=== PATIENT | female | born 1965 | race Two or more races ===

== ENCOUNTER 2024-08-27 10:21 | Emergency (ER) | payer OTHER, SELFPAY ==
[2024-08-27 10:22] VITALS: BMI 24.9
[2024-08-27 10:28] VITALS: BP 147/86; PULSE 84; RESP 19; TEMP 36.8; O2SAT 99
--- NOTE | 2024-08-27 10:31 | XR_ITS ---
Examination: Ribs, left, with PA chest, 3 views Technique: Chest PA, RIBS AP, RPO, LPO, AP coned lower ribs 5 views Exam date and time: August 27, 2024 1057 hrs. Indications: Posterior left rib pain noticed beginning 4 days ago Findings: Normal heart size No pneumothorax or pulmonary contusion No acute left rib fractures on this limited rib series Impression: No pneumothorax, pulmonary contusion or hemothorax Limited left rib series, no left rib fractures noted
--- NOTE | 2024-08-27 10:32 | EKG_ITS ---
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
--- NOTE | 2024-08-27 11:30 | PD.EDBACK ---
ED Back Injury Pain RME/HPI General Chief Complaint: Urogenital-Female Stated Complaint: I THINK I HAVE A KIDNEY STONE Time Seen by Provider: 08/27/24 10:24 Arrival date/time: 08/27/24 10:21 RME / HPI RME / HPI Narrative: This section includes all my notes and documentations, including HPI, PE, and ED course.? Mahendra Helm MD HPI: 59 year old female here with left sided pain in the middle of the back area for a couple of days. No known injury but work is very physical. Worse with certain movements and positions. Also reports urinary urgency for several days. No other complaints.. ROS: All negative except as documented in HPI. Physical Exam: General:? Alert and oriented.? No acute distress when remaining still.?? Eyes:? Conjunctivae and lids clear.? ENT:? No nasal congestion.? Neck:? Supple.? Heart:? RRR.? Lungs:? No respiratory distress.? Good air movement.? No rhonchi, wheezing, rales.?? Back: Palpation of the left sided intercostal spaces reproduces her pain in mid-thoracic area. Abdomen:? Soft and nontender.?? Legs:? No clubbing, cyanosis, edema.? Skin:? Warm and dry.?? Neuro:? Alert and oriented X 3.?? I reviewed all diagnostic test results. My interpretation of the EKG is?sinus rhythm no ST-T changes. My interpretation of the chest x-ray and left rib x-rays is no acute findings. UA unremarkable. At this point, diagnoses include?Intercostal Muscle Sprain. Treatment here included?Ibuprofen and Tylenol #3. Significant improvement noted. Recommended supportive care. Based on my best medical judgment, made decision no further evaluation or treatment indicated at this time.? Patient understands and agrees to the discharge instructions customized and printed, see below. Discharge Instructions from Dr. Helm printed for you: 1. After evaluation, there is no serious condition. Such as heart attack or kidney stone. 2. Your pain is from small muscle tears between the ribs. Will heal in a couple of weeks. 3. Apply ice or heat if helpful. Ibuprofen as needed. Lidocaine patches and Tylenol with Codeine as needed. 4. See a private doctor in 2 weeks if not completely better. 5. Seek immediate medical care with worsening or with any concerns. Mahendra Helm MD Related Data Home Medications ?Medication ?Instructions ?Recorded ?Confirmed famotidine 40 mg tablet 40 mg PO QDAY 02/17/19 03/10/19 lisinopril 5 mg tablet 5 mg PO QDAY 02/17/19 03/10/19 lovastatin 20 mg tablet 20 mg PO QDAY 02/17/19 03/10/19 Previous Rx's ?Medication ?Instructions ?Recorded ciprofloxacin HCl 500 mg tablet 500 mg PO BID #20 tabs 03/10/19 (Cipro) acetaminophen 300 mg-codeine 30 mg 2 tab PO TID PRN pain #20 tabs 08/27/24 tablet lidocaine 5 % topical patch 1 patch topical QDAY PRN pain #30 08/27/24 (Lidoderm) ea Allergies Allergy/AdvReac Type Severity Reaction Status Date / Time No Known Allergies Allergy Verified 08/27/24 10:26 Course Quality Measures none Orders Category Date Time Status EKG (ED ONLY) *Do not use* NOW Care 08/27/24 10:32 Completed EKG (ED Only) Stat Exams 08/27/24 10:32 Draft XR ribs LT min 3V w CXR1V Stat Exams 08/27/24 10:31 Completed UA, C/S IF [Urinalysis, C/S if Indicated] Stat Lab 08/27/24 11:50 Completed ACETAMINOPHEN w/COD 300-30 [Tylenol w/Cod #3] Med 08/27/24 10:32 Discontinued 2 tab PO X1 ONE Ibuprofen Tab [Motrin Tab] Med 08/27/24 10:33 Discontinued 600 mg PO X1 ONE Vital Signs Vital signs: Vital Signs Temperature 98.3 F 08/27/24 10:28 Pulse Rate 84 08/27/24 10:28 Respiratory Rate 19 08/27/24 10:28 Blood Pressure 147/86 H 08/27/24 10:28 Pulse Oximetry (%) 99 08/27/24 10:28 Oxygen Delivery Method Room Air 08/27/24 10:28 Back Pain / Injury Patient data External records reviewed:: [facility] previous records Clinical information provided by:: patient Social determinants that could affect healthcare access:: none Patient has the following chronic illnesses:: HTN and Hyperlipidemia How is presenting disease/condition affected by chronic disease/condition?: uneffected by Evaluation data The following diagnostics were reviewed and interpreted by me:: lab results, radiology exam(s) and EKG tracing(s) (My interpretation of the EKG: NSR (80 bpm) with no ST-T changes. Mahendra Helm MD) Lab and/or radiology exams considered but not ordered:: none Interpretation Summary: Intercostal Muscle Strain Medications / Prescriptions Medications or Prescriptions considered but not ordered:: none Medication administrations:: Medication Administration History Discontinued Medications Acetaminophen/Codeine Phosphate (Acetaminophen W/Cod 300-30 Tablet) 2 tab PO X1 ONE Stop: 08/27/24 10:33 Last Admin: 08/27/24 11:41 Dose: 2 tab Documented By: TC Ibuprofen (Ibuprofen Tab 600 Mg Tablet) 600 mg PO X1 ONE Stop: 08/27/24 10:34 Last Admin: 08/27/24 11:42 Dose: 600 mg Documented By: TC Ibuprofen and Tylenol #3 Consultations Consultation(s) initiated? (list below): No Diagnosis Differential diagnosis back pain/injury: pyelonephritis, thoracic back pain and other (Pneumonia, Intercostal Muscle Strain) Most likely diagnosis given after review of the tests above:: Instercostal Muscle Strain Admission Indicated Admission indicated?: not indicated Admission Request Was there a request for admission?: No Disposition Plan Disposition Plan: Discharge Discharge Attestation Discharge Attestation: The patient and all family members were given an opportunity to ask questions and understood the discharge instructions. Discharge instructions specifically effects, indications for sooner follow up or return to the emergency department, and the expected course of current diagnosis. Patient condition: Stable Discharge Plan Plan Patient Disposition: HOME (Self Care) Prescriptions/Referrals Prescriptions/Med Rec: New acetaminophen-codeine 300-30 mg tablet 2 tab PO TID MDD 6 PRN (Reason: pain) Qty: 20 0RF lidocaine [Lidoderm] 5 % adhesive patch,medicated 1 patch topical QDAY PRN (Reason: pain) Qty: 30 0RF Rx Instructions: leave on most painful area for up to 12 hrs No Action famotidine 40 mg Tablet 40 mg PO QDAY lisinopril 5 mg Tablet 5 mg PO QDAY lovastatin 20 mg Tablet 20 mg PO QDAY ciprofloxacin HCl [Cipro] 500 mg tablet 500 mg PO BID Qty: 20 0RF Referrals: Rhiannon Lynne PA-C [Primary Care Provider] - In 1 week Problem List Clinical Impression: Intercostal muscle tear Patient/Caregiver Discharge Instructions Discharge Activity: activity as tolerated Education Materials: ED Back Sprain/Strain Additional Instructions: Discharge Instructions from Dr. Helm printed for you: 1. After evaluation, there is no serious condition. Such as heart attack or kidney stone. 2. Your pain is from small muscle tears between the ribs. Will heal in a couple of weeks. 3. Apply ice or heat if helpful. Ibuprofen as needed. Lidocaine patches and Tylenol with Codeine as needed. 4. See a private doctor in 2 weeks if not completely better. 5. Seek immediate medical care with worsening or with any concerns. Print Language: Fijian Stand Alone Forms: Susy Award Info., Work/School Release, Patient Portal Info Letter
[2024-08-27] MEDS: ACETAMINOPHEN w/COD 300-30 TABLET 2 TAB PO (11:41)
[2024-08-27] MEDS: IBUPROFEN TAB 600 MG TABLET PO (11:42)
[2024-08-27 12:06] LABS: Collection Type, Urine Clean Catch; Squamous Epithelial Cell,Urine 0 /hpf (0-5)
[2024-08-27 12:17] LABS: Bilirubin,Urine Negative (Negative); Blood,Urine Trace (Negative); Clarity,Urine Clear (Clear/Hazy); Color,Urine Colorless (Lt Yel-Yel); Culture Indicated,Urine Not Indicated; Glucose, Urine Negative (Negative); Ketones,Urine Negative (Negative); Leukocyte Esterase,Urine Negative (Negative); Nitrite,Urine Negative (Negative); Protein,Urine Negative (Neg - Trace); RBC,Urine 2 /hpf (0-3); Specific Gravity,Urine 1.003 (1.001-1.035); Urobilinogen,Urine Negative mg/dL (0.0-1.0); WBC,Urine 1 /hpf (0-5)
== END 2024-08-27 13:04 | disposition home or self-care (01) ==
PROVIDERS: Emergency Provider Emergency Medicine; PCP Physician Assistant
DX: S29.011A Strain of muscle and tendon of front wall of thorax, initial encounter (principal); X58.XXXA Exposure to other specified factors, initial encounter; I10 Essential (primary) hypertension
CPT/HCPCS: 71101; 81001; 93005; 99283; A9270

== ENCOUNTER → 2025-01-17 | Outpatient (CLI) | payer OTHER, SELFPAY ==
--- NOTE | 2025-01-17 11:00 | XR_ITS ---
Examination: Screening digital mammography, bilateral Computer aided detection 3-D breast Tomosynthesis, bilateral Date and time of exam: January 17, 2025 1047 hours Compared to mammograms dating to November 26, 2017 Indication: Screening Technique: Nonmagnified MLO, CC views of the breasts to been obtained, reconstructed from 3-D Tomosynthesis images. R2 computer aided detection program utilized for evaluation of suspicious masses and/or abnormal calcifications. 3-D Tomosynthesis images obtained. Findings: The breasts are heterogeneously dense, which may obscure small masses Benign calcifications. No interval suspicious masses Impression: BI-RADS category II: Benign Findings. Recommend 1 year follow-up mammogram.
== END | disposition home or self-care (01) ==
LOC: CDIM 10:35
PROVIDERS: PCP Physician Assistant; Referring Provider Physician Assistant; Visit Provider Physician Assistant
DX: Z12.31 Encounter for screening mammogram for malignant neoplasm of breast (principal); R92.323 Mammographic fibroglandular density, bilateral breasts; R92.1 Mammographic calcification found on diagnostic imaging of breast
CPT/HCPCS: 77063; 77067